=== PATIENT | male | born 1980 | race Caucasian/White ===

== ENCOUNTER 2018-06-11 15:54 | Emergency (ER) | payer MEDICAID ==
[2018-06-11] MEDS ORDERED: ONDANSETRON HCL IV 4 MG/2 ML VIAL IV ONE (16:14)
[2018-06-11] MEDS ORDERED: 0.9 % SODIUM CHLORIDE 1,000 ML BAG IV ONE (16:14)
--- NOTE | 2018-06-11 16:24 | Emergency Department Record ---
History of Present Illness - General Chief complaint: Vomiting Stated complaint: VOMITING Time Seen by Provider: 06/11/18 16:13 Source: Patient Mode of Arrival: Ambulatory - History of Present Illness Initial comments: vomiting for two days and no BM for two days and he has this happen a coupe times a year and his primary DrGarry is in [place]. He just moved here. epigastric pain and he has been using zantac and stopped it and started it up today. PMH GERD, allergic to diary products, EGD done in [facility] 2 years ago and EGD in [place] 4 years ago gastritis, Patient smokes marijuana daily one joint, no etoh and never cigs but uses vape Onset/Timin -: Days(s) Consistency: Intermittent, Getting worse Improves with: None Worsens with: None Context: Other - Related Data Home Medications Medication Instructions Recorded Confirmed Last Taken Ranitidine HCl [Zantac] 150 mg PO DAILY 06/11/18 06/11/18 05/21/18 Previous Rx's Medication Instructions Recorded Omeprazole 20 mg PO DAILY #30 06/11/18 Promethazine HCl [Phenergan] 25 mg PO Q6HR #10 tablet 06/11/18 Allergies Allergy/AdvReac Type Severity Reaction Status Date / Time lactase [From Dairy Aid] AdvReac VOMITING Verified 06/11/18 16:05 Travel Screening - Travel/Exposure Within Last 30 Days Have you traveled within the last 30 days?: No - Travel/Exposure Within Last Year Have you traveled outside the [place] in the last year?: No - Additonal Travel Details Have you been exposed to anyone with a communicable illness?: No - Travel Symptoms Symptom Screening: None Review of Systems Reviewed: No additional complaints except as noted below Constitutional: Reports: As per HPI. Denies: Chills, Fever, Malaise, Night sweats, Weakness, Weight change Eyes: Reports: As per HPI. Denies: Eye discharge, Eye pain, Photophobia, Vision change ENT: Reports: As per HPI. Denies: Congestion, Dental pain, Ear pain, Epistaxis , Hearing loss, Throat pain Respiratory: Reports: As per HPI. Denies: Cough, Dyspnea, Hemoptysis, Stridor, Wheezes Cardiovascular: Reports: As per HPI. Denies: Arrhythmia, Chest pain, Dyspnea on exertion, Edema, Murmurs, Orthopnea, Palpitations, Paroxysmal nocturnal dyspnea, Rheumatic Fever, Syncope Endocrine: Reports: As per HPI. Denies: Fatigue, Heat or cold intolerance, Polydipsia, Polyuria Gastrointestinal: Reports: As per HPI, Abdominal pain, Vomiting. Denies: Constipation, Diarrhea, Hematemesis, Hematochezia, Melena, Nausea Genitourinary: Reports: As per HPI. Denies: Dysuria, Frequency, Hematuria, Incontinence, Retention, Testicular pain, Testicular mass, Urgency Musculoskeletal: Reports: As per HPI. Denies: Arthralgia, Back pain, Gout, Joint swelling, Myalgia, Neck pain Skin: Reports: As per HPI. Denies: Bruising, Change in color, Change in hair/ nails, Lesions, Pruritus, Rash Neurological: Reports: As per HPI. Denies: Abnormal gait, Confusion, Headache, Numbness, Paresthesias, Seizure, Tingling, Tremors, Vertigo, Weakness Psychiatric: Reports: As per HPI. Denies: Anxiety, Auditory hallucinations, Depression, Homicidal thoughts, Suicidal thoughts, Visual hallucinations Hematological/Lymphatic: Reports: As per HPI. Denies: Anemia, Blood Clots, Easy bleeding, Easy bruising, Swollen glands Past Medical History - SOCIAL HISTORY Smoking Status: Never smoker Alcohol Use: None Drug Use: Occasional Drug Use Detail:: Marijuana - RESPIRATORY Hx Respiratory Disorders: No - CARDIOVASCULAR Hx Cardio Disorders: No - NEURO Hx Neuro Disorders: No - GI Hx GI Disorders: Yes Hx Reflux: Yes - Hx Genitourinary Disorders: No - ENDOCRINE Hx Endocrine Disorders: No - MUSCULOSKELETAL Hx Musculoskeletal Disorders: No - PSYCH Hx Psych Problems: No - HEMATOLOGY/ONCOLOGY Hx Hematology/Oncology Disorders: No Family Medical History Any Significant Family History?: No Physical Exam - General General Appearance: Alert, Oriented x3, Cooperative, Mild distress - Head Head exam: Normal inspection - Eye Eye exam: Normal appearance, PERRL Pupils: Normal accommodation - ENT ENT exam: Normal exam, Mucous membranes moist, Normal external ear exam, Normal orophraynx, TM's normal bilaterally Ear exam: Normal external inspection. negative: External canal tenderness Nasal Exam: Normal inspection. negative: Discharge, Sinus tenderness Mouth exam: Normal external inspection, Tongue normal Teeth exam: Normal inspection. negative: Dental caries Throat exam: Normal inspection. negative: Tonsillar erythema, Tonsillar exudate - Neck Neck exam: Normal inspection, Full ROM. negative: Tenderness - Respiratory Respiratory exam: Normal lung sounds bilaterally. negative: Respiratory distress - Cardiovascular Cardiovascular Exam: Regular rate, Normal rhythm, Normal heart sounds - GI/Abdominal GI/Abdominal exam: Soft, Normal bowel sounds. negative: Tenderness - Rectal Rectal exam: Deferred - exam: Deferred - Extremities Extremities exam: Normal inspection, Full ROM, Normal capillary refill. negative: Tenderness - Back Back exam: Reports: Normal inspection, Full ROM. Denies: Muscle spasm, Rash noted, Tenderness - Neurological Neurological exam: Alert, Normal gait, Oriented X3, Reflexes normal - Psychiatric Psychiatric exam: Normal affect, Normal mood - Skin Skin exam: Dry, Intact, Normal color, Warm Course Vital Signs 06/11/18 16:07 Temperature 98.7 F Pulse Rate 76 Respiratory 20 Rate Blood Pressure 154/115 Pulse Ox 97 - Reevaluation(s) Reevaluation #1: 06/11/18 17:20 feeling better Medical Decision Making - Lab Data Result diagrams: 06/11/18 16:15 06/11/18 16:15 Disposition Clinical Impression: Vomiting Qualifiers: Vomiting type: unspecified Vomiting Intractability: non-intractable Nausea presence: with nausea Qualified Code(s): R11.2 - Nausea with vomiting, unspecified GERD (gastroesophageal reflux disease) Qualifiers: Esophagitis presence: with esophagitis Qualified Code(s): K21.0 - Gastro- esophageal reflux disease with esophagitis Gastritis Qualifiers: Gastritis type: unspecified gastritis Chronicity: acute Gastritis bleeding: without bleeding Qualified Code(s): K29.00 - Acute gastritis without bleeding Disposition: Home, Self-Care Condition: (1) Good Instructions: Gastritis (ED), Gastroesophageal Reflux Disease (ED), Acute Nausea and Vomiting (ED) Additional Instructions: follow up with a family DrGarry in one week tylenol for pain Prescriptions: Promethazine HCl [Phenergan] 25 mg PO Q6HR #10 tablet Omeprazole 20 mg PO DAILY #30 cap.dr Forms: Patient Portal Access Time of Disposition: 17:22 Quality - Quality Measures Quality Measures: N/A - Blood Pressure Screening Does Patient Have Any of the Following: No Blood Pressure Classification: Hypertensive Reading Systolic Measurement: 154 Diastolic Measurement: 115 Screening for High Blood Pressure: < First Hypertensive BP, F/U Documented > [ G8950] First Hypertensive Follow-up Interventions: Referral to alternative/primary care provider.
[2018-06-11 16:28] LABS: HEMATOCRIT 47.3 % (42.0-52.0); HEMOGLOBIN 16.4 gm/dl (14.0-18.0); MEAN CELL VOLUME 89.4 fl (81-97); MEAN CORPUSCULAR HGB CONC 34.7 g/dl (32-36); MEAN PLATELET VOLUME 9.9 fl (7.4-10.4); PLATELET COUNT 388 K/uL (130-400); RED BLOOD COUNT 5.29 M/uL (4.40-5.70); RED CELL DISTRIBUTION WIDTH 12.5 % (11.5-14.5); WHITE BLOOD COUNT W/O DIFF 13.1 K/uL (4.2-12.2)
[2018-06-11 16:46] LABS: PLATELET ESTIMATE NORMAL (NORMAL)
[2018-06-11 16:51] LABS: BLOOD UREA NITROGEN 36 mg/dL (6-20); CREATININE 1.5 mg/dL (0.7-1.2); EST GLOMERULAR FILTRATION RATE 56 mL/min; TOTAL PROTEIN 9.1 g/dL (6.6-8.7)
[2018-06-11] MEDS ORDERED: PROMETHAZINE HCL 25 MG in 0.9 % SODIUM CHLORIDE 100ML 100 ML IVPB ONE (16:52)
[2018-06-11 16:53] LABS: GLUCOSE,RANDOM 148 mg/dL (74-109)
[2018-06-11 16:56] LABS: ALBUMIN 5.6 g/dL (4.0-5.0); ALKALINE PHOSPHATASE 55 U/L (40-129); ALT/SGPT 16 U/L (<41); AST/SGOT 19 U/L (10.0-50.0); LIPASE 17 U/L (13-60)
[2018-06-11 16:59] LABS: BILIRUBIN,DIRECT < 0.2 mg/dL (0-0.3)
[2018-06-11] MEDS ORDERED: 0.9 % SODIUM CHLORIDE 1000ML 1,000 ML IV SCH (17:00)
[2018-06-11] MEDS ORDERED: SUCRALFATE 1 G/10 ML UD PO ONE (17:08)
== END 2018-06-11 17:46 | disposition home or self-care (01) ==
LOC: ER 15:54
DX: K21.0 Gastro-esophageal reflux disease with esophagitis (principal); K29.00 Acute gastritis without bleeding; R11.2 Nausea with vomiting, unspecified
CPT/HCPCS: 80048; 80076; 83690; 85027; 96365; 96375; 99284; J2405; J2550; J7030

== ENCOUNTER 2018-08-22 11:29 | Emergency (ER) | payer MEDICAID ==
[2018-08-22] MEDS ORDERED: ONDANSETRON HCL IV 4 MG/2 ML VIAL IV ONE (11:35)
[2018-08-22] MEDS ORDERED: 0.9 % SODIUM CHLORIDE 1,000 ML BAG IV ONE ×2 (11:35→13:20)
--- NOTE | 2018-08-22 11:36 | Emergency Department Record ---
History of Present Illness - General Stated complaint: VOMITING Time Seen by Provider: 08/22/18 11:35 Source: Patient - History of Present Illness Initial comments: The patient states that he has vomited bile forty times today, and also lots for the prior 2 days as well. He also has a trace of diarrhea. he denies recent antibiotic use. He smokes marijuana two times daily or more for his anxiety. He denies fevers, chills, cough, sore throat, ear pain, chest pain, or other new problems. He takes phenergan suppositories for his nausea as he states zofran doesn't work. He just moved here from [place] where he had a UGI workup about 2 years ago which was normal except for reflux. He also has a milk allergy. MD complaint: Abdominal pain, Diarrhea, Nausea, Vomiting - Related Data Previous Rx's Medication Instructions Recorded Promethazine HCl [Phenergan] 25 mg RC Q6HR PRN #10 supp.rect 08/22/18 Allergies Allergy/AdvReac Type Severity Reaction Status Date / Time lactase [From Dairy Aid] AdvReac VOMITING Verified 06/11/18 16:05 Review of Systems Reviewed: No additional complaints except as noted below Constitutional: Reports: As per HPI. Denies: Chills, Fever, Malaise, Night sweats, Weakness, Weight change Eyes: Reports: As per HPI. Denies: Eye discharge, Eye pain, Photophobia, Vision change ENT: Reports: As per HPI. Denies: Congestion, Dental pain, Ear pain, Epistaxis , Hearing loss, Throat pain Respiratory: Reports: As per HPI. Denies: Cough, Dyspnea, Hemoptysis, Stridor, Wheezes Cardiovascular: Reports: As per HPI. Denies: Arrhythmia, Chest pain, Dyspnea on exertion, Edema, Murmurs, Orthopnea, Palpitations, Paroxysmal nocturnal dyspnea, Rheumatic Fever, Syncope Endocrine: Reports: As per HPI. Denies: Fatigue, Heat or cold intolerance, Polydipsia, Polyuria Gastrointestinal: Reports: As per HPI. Denies: Abdominal pain, Constipation, Diarrhea, Hematemesis, Hematochezia, Melena, Nausea, Vomiting Genitourinary: Reports: As per HPI. Denies: Dysuria, Frequency, Hematuria, Incontinence, Retention, Testicular pain, Testicular mass, Urgency Musculoskeletal: Reports: As per HPI. Denies: Arthralgia, Back pain, Gout, Joint swelling, Myalgia, Neck pain Skin: Reports: As per HPI. Denies: Bruising, Change in color, Change in hair/ nails, Lesions, Pruritus, Rash Neurological: Reports: As per HPI. Denies: Abnormal gait, Confusion, Headache, Numbness, Paresthesias, Seizure, Tingling, Tremors, Vertigo, Weakness Psychiatric: Reports: As per HPI. Denies: Anxiety, Auditory hallucinations, Depression, Homicidal thoughts, Suicidal thoughts, Visual hallucinations Hematological/Lymphatic: Reports: As per HPI. Denies: Anemia, Blood Clots, Easy bleeding, Easy bruising, Swollen glands Past Medical History - SOCIAL HISTORY Smoking Status: Never smoker Drug Use: Occasional Drug Use Detail:: Marijuana - RESPIRATORY Hx Respiratory Disorders: No - CARDIOVASCULAR Hx Cardio Disorders: No - NEURO Hx Neuro Disorders: No - GI Hx GI Disorders: Yes Hx Reflux: Yes - Hx Genitourinary Disorders: No - ENDOCRINE Hx Endocrine Disorders: No - MUSCULOSKELETAL Hx Musculoskeletal Disorders: No - PSYCH Hx Psych Problems: No - HEMATOLOGY/ONCOLOGY Hx Hematology/Oncology Disorders: No Family Medical History Any Significant Family History?: No Physical Exam - General General Appearance: Alert, Oriented x3, Cooperative, Mild distress - Head Head exam: Normal inspection - Eye Eye exam: Normal appearance, PERRL, EOMI. negative: Conjunctival injection, Nystagmus Pupils: Normal accommodation - ENT ENT exam: Normal exam, Mucous membranes dry, Normal external ear exam, Normal orophraynx, TM's normal bilaterally Ear exam: Normal external inspection. negative: External canal tenderness Nasal Exam: Normal inspection. negative: Discharge, Sinus tenderness Mouth exam: Normal external inspection, Tongue normal Teeth exam: Normal inspection. negative: Dental caries Throat exam: Normal inspection. negative: Tonsillar erythema, Tonsillar exudate - Neck Neck exam: Normal inspection, Full ROM. negative: Lymphadenopathy, Meningismus , Tenderness - Respiratory Respiratory exam: Normal lung sounds bilaterally. negative: Chest wall tenderness, Respiratory distress, Stridor, Wheezes - Cardiovascular Cardiovascular Exam: Regular rate, Normal rhythm, Normal heart sounds - GI/Abdominal GI/Abdominal exam: Soft, Normal bowel sounds, Tenderness (epigastric tenderness) - Rectal Rectal exam: Deferred - exam: Deferred - Extremities Extremities exam: Normal inspection, Full ROM, Normal capillary refill. negative: Calf tenderness, Pedal edema, Tenderness - Back Back exam: Reports: Normal inspection, Full ROM. Denies: CVA tenderness (R), CVA tenderness (L), Muscle spasm, Rash noted, Tenderness - Neurological Neurological exam: Alert, CN II-XII intact, Normal gait, Oriented X3, Reflexes normal. negative: Motor sensory deficit - Psychiatric Psychiatric exam: Normal affect, Normal mood - Skin Skin exam: Dry, Intact, Normal color, Warm. negative: Rash Course - Reevaluation(s) Reevaluation #1: 08/22/18 13:26 Patient states that he is no better after zofran and phenergan. He is dry heaving in the room, leaning forward, "it hurts worse in my stomach when I lay back." Reevaluation #2: 08/22/18 15:36 Patient appears much more comfortable and is ready for DC home with Phenergan suppositories and a GI consult. Medical Decision Making - Management Options MDM Management: No Additional Work-up Planned - Data Complexity MDM Data: Labs Ordered and/or Reviewed, X-Ray Ordered and/or Reviewed (CT abd pelvis: Neg. ) - Lab Data Result diagrams: 08/22/18 12:00 08/22/18 12:00 Disposition Disposition: Discharge Clinical Impression: Vomiting Qualifiers: Vomiting type: bilious vomiting Nausea presence: with nausea Qualified Code(s) : R11.14 - Bilious vomiting Nausea & vomiting Qualifiers: Vomiting Intractability: non-intractable Disposition: Home, Self-Care Condition: (1) Good Instructions: Acute Nausea and Vomiting (ED) Additional Instructions: Phenergan suppositories as needed as directed for nausea. [facility]. PCP follow up next week. Prescriptions: Promethazine HCl [Phenergan] 25 mg RC Q6HR PRN #10 supp.rect PRN Reason: Nausea/Vomiting Referrals: CHIKI PINZON [DOCTOR OF OSTEOPATH] - Quality - Quality Measures Quality Measures: N/A - Blood Pressure Screening Does Patient Have Any of the Following: No Blood Pressure Classification: Hypertensive Reading Systolic Measurement: 114 Diastolic Measurement: 100 Screening for High Blood Pressure: < Normal BP, F/U Not Required > [G8783]
[2018-08-22 12:04] LABS: BASO % 0.2 % (0-6); EOS % 0.4 % (0-6); GRAN % 79.2 % (47-80); HEMATOCRIT 46.7 % (42.0-52.0); HEMOGLOBIN 15.7 gm/dl (14.0-18.0); LYMPH % 13.8 % (16-45); MEAN CELL VOLUME 90.9 fl (81-97); MEAN CORPUSCULAR HEMOGLOBIN 30.5 pg (27-33); MEAN CORPUSCULAR HGB CONC 33.6 g/dl (32-36); MONO % 6.4 % (0-9); PLATELET COUNT 359 K/uL (130-400); RED BLOOD COUNT 5.14 M/uL (4.40-5.70); RED CELL DISTRIBUTION WIDTH 13.3 % (11.5-14.5); WHITE BLOOD COUNT W/O DIFF 11.9 K/uL (4.2-12.2)
[2018-08-22 12:09] LABS: BLOOD UREA NITROGEN 17 mg/dL (6-20); EST GLOMERULAR FILTRATION RATE > 60 mL/min
[2018-08-22 12:10] LABS: TOTAL PROTEIN 8.6 g/dL (6.6-8.7)
[2018-08-22 12:12] LABS: GLUCOSE,RANDOM 147 mg/dL (74-109)
[2018-08-22 12:15] LABS: ALB/GLOB RATIO 1.5 (1.1-1.8); ALBUMIN 5.1 g/dL (4.0-5.0); ALKALINE PHOSPHATASE 58 U/L (55-149); ALT/SGPT 27 U/L (<41); AST/SGOT 19 U/L (10.0-50.0); LIPASE 24 U/L (13-60)
[2018-08-22] MEDS ORDERED: PROMETHAZINE HCL 12.5 MG in 0.9 % SODIUM CHLORIDE 100ML 100 ML IVPB ONE (12:18)
[2018-08-22 12:43] LABS: URINE BILIRUBIN SMALL (NEGATIVE); URINE BLOOD NEGATIVE (NEGATIVE); URINE COLOR YELLOW; URINE GLUCOSE (UA) NEGATIVE (NEGATIVE); URINE LEUKOCYTE ESTERASE NEGATIVE (NEGATIVE); URINE NITRITE NEGATIVE (NEGATIVE)
[2018-08-22 12:45] LABS: URINE APPEARANCE CLOUDY; URINE KETONE 80 mg/dL (NEGATIVE)
[2018-08-22 12:47] LABS: AMPHETAMINE SCREEN URINE NOT DETECTED; BARBITURATE SCREEN URINE NOT DETECTED; BENZODIAZEPINE SCREEN URINE NOT DETECTED; COCAINE SCREEN URINE NOT DETECTED; METHADONE SCREEN URINE NOT DETECTED; METHAMPHETAMINE SCREEN NOT DETECTED; OPIATE SCREEN URINE NOT DETECTED; OXYCODONE SCREEN URINE NOT DETECTED; PHENCYCLIDINE SCREEN URINE NOT DETECTED; PROPOXYPHENE SCREEN URINE NOT DETECTED; THC SCREEN URINE DETECTED; TRICYCLIC ANTIDEPRESSANT SCRN NOT DETECTED
[2018-08-22 12:51] LABS: URINE BACTERIA 1+; URINE MUCUS HEAVY; URINE RBC NONE SEEN (NONE SEEN); URINE WBC 0 - 2 (0-2/hpf)
[2018-08-22] MEDS ORDERED: LORAZEPAM 2 MG/ML VIAL IV ONE (13:26)
--- NOTE | 2018-08-24 19:26 | CT SCAN REPORT ---
EXAM: CT SCAN ABDOMEN/PELVIS W CONTRAST HISTORY: NAUSEA AND VOMITING. TECHNIQUE: Sequential axial images were obtained from the diaphragms through the ischiorectal fossa after intravenous administration of 100 mL of Omnipaque- 300 contrast material. COMPARISON: None. FINDINGS: The visualized lung bases appear normal. The liver appears homogeneous. No gallstones or ductal dilatation. The pancreas and spleen appear normal. The adrenal glands and kidneys appear normal. No CT findings suggestive of obstructive uropathy. The urinary bladder appears normal. The small bowel appears normal. The appendix is visualized and appears normal. The colon appears normal. IMPRESSION: NO ACUTE ABDOMINAL OR PELVIC DISEASE PROCESS. JOB NUMBER: [id number] MTDD
== END 2018-08-22 15:55 | disposition home or self-care (01) ==
LOC: ER 11:29
DX: R11.14 Bilious vomiting (principal); R19.7 Diarrhea, unspecified; R10.13 Epigastric pain
CPT/HCPCS: 99284 ×2; 96365; 96375; 96361; 83690; 85025; 80053; 81001; 80305; 74177; Q9967; J2405; J2060; J2550; J7030

== ENCOUNTER 2018-08-24 13:34 | Emergency (ER) | payer MEDICAID ==
[2018-08-24] MEDS ORDERED: PROMETHAZINE HCL 25 MG in 0.9 % SODIUM CHLORIDE 100ML 100 ML IV ONE (15:00)
[2018-08-24] MEDS ORDERED: 0.9 % SODIUM CHLORIDE 1000ML 2,000 ML IV ONE (15:01)
[2018-08-24] MEDS ORDERED: 0.9 % SODIUM CHLORIDE 1,000 ML BAG IV ONE (15:06)
--- NOTE | 2018-08-24 15:20 | Emergency Department Record ---
History of Present Illness - General Chief complaint: Vomiting Stated complaint: VOMITING Time Seen by Provider: 08/24/18 15:01 Source: Patient, RN notes reviewed Mode of Arrival: Ambulatory - History of Present Illness Initial comments: patient vomited multipe times 20 times today and diarrhea times three today and he was seen here two days ago and given IV fluids and phenergan and he said he hAS HAD PROBLEMS WITH VOMITING FOR five years and he smokes 4 bowls of marijuana a day. patient had a CT of abd [address] of abd and pelvis negative for an acute process Onset/Timin -: Days(s) Description of Vomiting: Bilious, Watery Associated Abdominal Pain: Yes Location: Diffuse Improves with: None Worsens with: None Associated Symptoms: Denies other symptoms - Related Data Previous Rx's Medication Instructions Recorded Promethazine HCl [Phenergan] 25 mg RC Q6HR PRN #10 supp.rect 08/22/18 Hydroxyzine Pamoate [Vistaril] 25 mg PO Q6H #20 capsule 08/24/18 Promethazine HCl [Phenergan] 25 mg PO Q6HR #20 tablet 08/24/18 Allergies Allergy/AdvReac Type Severity Reaction Status Date / Time lactase [From Dairy Aid] AdvReac VOMITING Verified 08/24/18 14:02 Travel Screening - Travel/Exposure Within Last 30 Days Have you traveled within the last 30 days?: No Review of Systems Reviewed: No additional complaints except as noted below Constitutional: Reports: As per HPI. Denies: Chills, Fever, Malaise, Night sweats, Weakness, Weight change Eyes: Reports: As per HPI. Denies: Eye discharge, Eye pain, Photophobia, Vision change ENT: Reports: As per HPI. Denies: Congestion, Dental pain, Ear pain, Epistaxis , Hearing loss, Throat pain Respiratory: Reports: As per HPI. Denies: Cough, Dyspnea, Hemoptysis, Stridor, Wheezes Cardiovascular: Reports: As per HPI. Denies: Arrhythmia, Chest pain, Dyspnea on exertion, Edema, Murmurs, Orthopnea, Palpitations, Paroxysmal nocturnal dyspnea, Rheumatic Fever, Syncope Endocrine: Reports: As per HPI. Denies: Fatigue, Heat or cold intolerance, Polydipsia, Polyuria Gastrointestinal: Reports: As per HPI, Vomiting. Denies: Abdominal pain, Constipation, Diarrhea, Hematemesis, Hematochezia, Melena, Nausea Genitourinary: Reports: As per HPI. Denies: Dysuria, Frequency, Hematuria, Incontinence, Retention, Testicular pain, Testicular mass, Urgency Musculoskeletal: Reports: As per HPI. Denies: Arthralgia, Back pain, Gout, Joint swelling, Myalgia, Neck pain Skin: Reports: As per HPI. Denies: Bruising, Change in color, Change in hair/ nails, Lesions, Pruritus, Rash Neurological: Reports: As per HPI. Denies: Abnormal gait, Confusion, Headache, Numbness, Paresthesias, Seizure, Tingling, Tremors, Vertigo, Weakness Psychiatric: Reports: As per HPI. Denies: Anxiety, Auditory hallucinations, Depression, Homicidal thoughts, Suicidal thoughts, Visual hallucinations Hematological/Lymphatic: Reports: As per HPI. Denies: Anemia, Blood Clots, Easy bleeding, Easy bruising, Swollen glands Past Medical History - SOCIAL HISTORY Smoking Status: Former smoker Alcohol Use: None Drug Use: Occasional Drug Use Detail:: Marijuana - RESPIRATORY Hx Respiratory Disorders: No - CARDIOVASCULAR Hx Cardio Disorders: No - NEURO Hx Neuro Disorders: No - GI Hx GI Disorders: Yes Hx Abdominal Pain: Yes Hx Reflux: Yes Hx Nausea/Vomiting: Yes - Hx Genitourinary Disorders: No - ENDOCRINE Hx Endocrine Disorders: No - MUSCULOSKELETAL Hx Musculoskeletal Disorders: No - PSYCH Hx Psych Problems: Yes Hx Anxiety: Yes Hx Depression: Yes - HEMATOLOGY/ONCOLOGY Hx Hematology/Oncology Disorders: No Family Medical History Any Significant Family History?: No Physical Exam - General General Appearance: Alert, Oriented x3, Cooperative, Mild distress - Head Head exam: Normal inspection - Eye Eye exam: Normal appearance, PERRL Pupils: Normal accommodation - ENT ENT exam: Normal exam, Mucous membranes moist, Normal external ear exam, Normal orophraynx, TM's normal bilaterally Ear exam: Normal external inspection. negative: External canal tenderness Nasal Exam: Normal inspection. negative: Discharge, Sinus tenderness Mouth exam: Normal external inspection, Tongue normal Teeth exam: Normal inspection. negative: Dental caries Throat exam: Normal inspection. negative: Tonsillar erythema, Tonsillar exudate - Neck Neck exam: Normal inspection, Full ROM. negative: Tenderness - Respiratory Respiratory exam: Normal lung sounds bilaterally. negative: Respiratory distress - Cardiovascular Cardiovascular Exam: Regular rate, Normal rhythm, Normal heart sounds - GI/Abdominal GI/Abdominal exam: Soft, Normal bowel sounds. negative: Tenderness - Rectal Rectal exam: Deferred - exam: Deferred - Extremities Extremities exam: Normal inspection, Full ROM, Normal capillary refill. negative: Tenderness - Back Back exam: Reports: Normal inspection, Full ROM. Denies: Muscle spasm, Rash noted, Tenderness - Neurological Neurological exam: Alert, Normal gait, Oriented X3, Reflexes normal - Psychiatric Psychiatric exam: Normal affect, Normal mood - Skin Skin exam: Dry, Intact, Normal color, Warm Course Vital Signs 08/24/18 14:02 Temperature 98.1 F Pulse Rate 138 H Respiratory 20 Rate Blood Pressure 149/116 Pulse Ox 99 Medical Decision Making - Lab Data Result diagrams: 08/24/18 14:50 08/24/18 14:50 Disposition Clinical Impression: Marijuana abuse Vomiting Qualifiers: Vomiting type: unspecified Vomiting Intractability: non-intractable Nausea presence: with nausea Qualified Code(s): R11.2 - Nausea with vomiting, unspecified Disposition: Home, Self-Care Condition: (2) Stable Instructions: Acute Nausea and Vomiting (ED) Additional Instructions: stop marijuana clear liquids for 24 hours vistartil 25 mg every 6 hours phenergan 25 mg every 6 hours follow up with family Dr as scheduled Prescriptions: Promethazine HCl [Phenergan] 25 mg PO Q6HR #20 tablet Hydroxyzine Pamoate [Vistaril] 25 mg PO Q6H #20 capsule Forms: Patient Portal Access Time of Disposition: 17:55 Quality - Quality Measures Quality Measures: N/A - Blood Pressure Screening Does Patient Have Any of the Following: No Blood Pressure Classification: Hypertensive Reading Systolic Measurement: 149 Diastolic Measurement: 116 Screening for High Blood Pressure: < Pre-Hypertensive BP, F/U Documented > [ G8950] Pre-Hypertensive Follow-up Interventions: Referral to alternative/primary care provider.
[2018-08-24 15:21] LABS: BASO % 0.1 % (0-6); GRAN % 76.8 % (47-80); LYMPH % 11.9 % (16-45); MEAN CELL VOLUME 90.9 fl (81-97); MEAN CORPUSCULAR HEMOGLOBIN 30.3 pg (27-33); MEAN CORPUSCULAR HGB CONC 33.3 g/dl (32-36); MEAN PLATELET VOLUME 10.8 fl (7.4-10.4); MONO % 11.2 % (0-9); PLATELET COUNT 325 K/uL (130-400); RED BLOOD COUNT 5.28 M/uL (4.40-5.70); RED CELL DISTRIBUTION WIDTH 13.6 % (11.5-14.5); WHITE BLOOD COUNT W/O DIFF 10.9 K/uL (4.2-12.2)
[2018-08-24 15:30] LABS: BLOOD UREA NITROGEN 22 mg/dL (6-20); EST GLOMERULAR FILTRATION RATE > 60 mL/min
[2018-08-24 15:31] LABS: TOTAL PROTEIN 9.4 g/dL (6.6-8.7)
[2018-08-24 15:33] LABS: GLUCOSE,RANDOM 122 mg/dL (74-109)
[2018-08-24 15:35] LABS: ALBUMIN 5.5 g/dL (4.0-5.0); ALKALINE PHOSPHATASE 55 U/L (55-149); ALT/SGPT 24 U/L (<41); AST/SGOT 21 U/L (10.0-50.0); LIPASE 20 U/L (13-60)
[2018-08-24 15:38] LABS: BILIRUBIN,DIRECT < 0.2 mg/dL (0-0.3)
[2018-08-24] MEDS ORDERED: PROMETHAZINE HCL 25 MG/ML VIAL IV ONE (15:50)
[2018-08-24 16:10] LABS: URINE APPEARANCE CLEAR; URINE BILIRUBIN NEGATIVE (NEGATIVE); URINE BLOOD NEGATIVE (NEGATIVE); URINE COLOR YELLOW; URINE GLUCOSE (UA) NEGATIVE (NEGATIVE); URINE KETONE 40 mg/dL (NEGATIVE); URINE LEUKOCYTE ESTERASE NEGATIVE (NEGATIVE); URINE NITRITE NEGATIVE (NEGATIVE)
[2018-08-24] MEDS ORDERED: ONDANSETRON HCL IV 4 MG/2 ML VIAL IVP ONE (16:19)
[2018-08-24] MEDS ORDERED: LORAZEPAM 2 MG/ML VIAL IV ONE (16:19)
[2018-08-24 16:21] LABS: URINE AMORPHOUS SEDIMENT 2+; URINE EPITHELIAL CELLS 0 - 2 (FEW); URINE RBC 0 - 2 (NONE SEEN); URINE WBC 0 - 2 (0-2/hpf)
[2018-08-24 16:22] LABS: AMPHETAMINE SCREEN URINE NOT DETECTED; BARBITURATE SCREEN URINE NOT DETECTED; BENZODIAZEPINE SCREEN URINE NOT DETECTED; COCAINE SCREEN URINE NOT DETECTED; METHADONE SCREEN URINE NOT DETECTED; METHAMPHETAMINE SCREEN NOT DETECTED; OPIATE SCREEN URINE NOT DETECTED; OXYCODONE SCREEN URINE NOT DETECTED; PHENCYCLIDINE SCREEN URINE NOT DETECTED; PROPOXYPHENE SCREEN URINE NOT DETECTED; THC SCREEN URINE DETECTED; TRICYCLIC ANTIDEPRESSANT SCRN NOT DETECTED
[2018-08-24] MEDS ORDERED: POTASSIUM CHLORIDE 20 MEQ TABLET PO ONE (17:43)
[2018-08-24] MEDS ORDERED: HYDROXYZINE PAMOATE 25 MG CAPSULE PO ONE (17:49)
[2018-08-24] MEDS ORDERED: PROMETHAZINE HCL 25 MG TABLET PO ONE (17:49)
== END 2018-08-24 18:15 | disposition home or self-care (01) ==
LOC: ER 13:34
DX: R11.2 Nausea with vomiting, unspecified (principal); R19.7 Diarrhea, unspecified; F12.10 Cannabis abuse, uncomplicated; Z87.891 Personal history of nicotine dependence
CPT/HCPCS: 99284 ×2; 96365; 96375; 96361; 83690; 85025; 80076; 80048; 81001; 80305; G0480; J2405; J2060; 80320; J2550; J7030; Q0170

== ENCOUNTER 2018-12-17 12:53 | Emergency (ER) | payer MEDICAID ==
[2018-12-17] MEDS ORDERED: 0.9 % SODIUM CHLORIDE 1,000 ML BAG IV ONE (13:15)
--- NOTE | 2018-12-17 13:15 | Emergency Department Record ---
History of Present Illness - General Chief complaint: Vomiting Stated complaint: VOMITING Time Seen by Provider: 12/17/18 12:59 Source: Patient, RN notes reviewed Mode of Arrival: Wheelchair - History of Present Illness Initial comments: patient started vomiting on saturday and vomiting about times 20 and he tried zantac and peptobismal an one phenergan suppository. states the insurance doesn't cover the phenergan suppositories. Patient seen by Dr. Sharma in the office today and she was concerned he may have a kidney stone. His back pain is bilateral and more on the left side but mostly midline. patient smokes two joints per day of marijuana Onset/Timin -: Days(s) Severity: Moderate Associated Symptoms: Denies other symptoms - Related Data Previous Rx's Medication Instructions Recorded Promethazine HCl [Phenergan] 25 mg RC Q6HR #4 supp.rect 12/17/18 Allergies Allergy/AdvReac Type Severity Reaction Status Date / Time lactase [From Dairy Aid] AdvReac VOMITING Verified 12/17/18 12:58 Travel Screening - Travel/Exposure Within Last 30 Days Have you traveled within the last 30 days?: No - Travel/Exposure Within Last Year Have you traveled outside the [place] in the last year?: No - Additonal Travel Details Have you been exposed to anyone with a communicable illness?: No - Travel Symptoms Symptom Screening: None Review of Systems Reviewed: No additional complaints except as noted below Constitutional: Reports: As per HPI. Denies: Chills, Fever, Malaise, Night sweats, Weakness, Weight change Eyes: Reports: As per HPI. Denies: Eye discharge, Eye pain, Photophobia, Vision change ENT: Reports: As per HPI. Denies: Congestion, Dental pain, Ear pain, Epistaxis, Hearing loss, Throat pain Respiratory: Reports: As per HPI. Denies: Cough, Dyspnea, Hemoptysis, Stridor, Wheezes Cardiovascular: Reports: As per HPI. Denies: Arrhythmia, Chest pain, Dyspnea on exertion, Edema, Murmurs, Orthopnea, Palpitations, Paroxysmal nocturnal dyspnea, Rheumatic Fever, Syncope Endocrine: Reports: As per HPI. Denies: Fatigue, Heat or cold intolerance, Polydipsia, Polyuria Gastrointestinal: Reports: As per HPI. Denies: Abdominal pain, Constipation, Diarrhea, Hematemesis, Hematochezia, Melena, Nausea, Vomiting Genitourinary: Reports: As per HPI. Denies: Dysuria, Frequency, Hematuria, Incontinence, Retention, Testicular pain, Testicular mass, Urgency Musculoskeletal: Reports: As per HPI. Denies: Arthralgia, Back pain, Gout, Join t swelling, Myalgia, Neck pain Skin: Reports: As per HPI. Denies: Bruising, Change in color, Change in hair/nails, Lesions, Pruritus, Rash Neurological: Reports: As per HPI. Denies: Abnormal gait, Confusion, Headache, Numbness, Paresthesias, Seizure, Tingling, Tremors, Vertigo, Weakness Psychiatric: Reports: As per HPI. Denies: Anxiety, Auditory hallucinations, Depression, Homicidal thoughts, Suicidal thoughts, Visual hallucinations Hematological/Lymphatic: Reports: As per HPI. Denies: Anemia, Blood Clots, Easy bleeding, Easy bruising, Swollen glands Past Medical History - SOCIAL HISTORY Smoking Status: Former smoker Alcohol Use: None Drug Use: Heavy Drug Use Detail:: Marijuana - RESPIRATORY Hx Respiratory Disorders: No - CARDIOVASCULAR Hx Cardio Disorders: No - NEURO Hx Neuro Disorders: No - GI Hx GI Disorders: Yes Hx Abdominal Pain: Yes Hx Reflux: Yes Hx Nausea/Vomiting: Yes - Hx Genitourinary Disorders: No - ENDOCRINE Hx Endocrine Disorders: No - MUSCULOSKELETAL Hx Musculoskeletal Disorders: No - PSYCH Hx Psych Problems: Yes Hx Anxiety: Yes Hx Depression: Yes - HEMATOLOGY/ONCOLOGY Hx Hematology/Oncology Disorders: No Family Medical History Any Significant Family History?: No Physical Exam - General General Appearance: Alert, Oriented x3, Cooperative, No acute distress - Head Head exam: Normal inspection - Eye Eye exam: Normal appearance, PERRL Pupils: Normal accommodation - ENT ENT exam: Normal exam, Mucous membranes moist, Normal external ear exam, Normal orophraynx, TM's normal bilaterally Ear exam: Normal external inspection. negative: External canal tenderness Nasal Exam: Normal inspection. negative: Discharge, Sinus tenderness Mouth exam: Normal external inspection, Tongue normal Teeth exam: Normal inspection. negative: Dental caries Throat exam: Normal inspection. negative: Tonsillar erythema, Tonsillar exudate - Neck Neck exam: Normal inspection, Full ROM. negative: Tenderness - Respiratory Respiratory exam: Normal lung sounds bilaterally. negative: Respiratory distress - Cardiovascular Cardiovascular Exam: Regular rate, Normal rhythm, Normal heart sounds - GI/Abdominal GI/Abdominal exam: Soft, Normal bowel sounds. negative: Tenderness - Rectal Rectal exam: Deferred - exam: Deferred - Extremities Extremities exam: Normal inspection, Full ROM, Normal capillary refill. negative: Tenderness - Back Back exam: Reports: Normal inspection, Full ROM. Denies: Muscle spasm, Rash noted, Tenderness - Neurological Neurological exam: Alert, Normal gait, Oriented X3, Reflexes normal - Psychiatric Psychiatric exam: Normal affect, Normal mood - Skin Skin exam: Dry, Intact, Normal color, Warm Course Vital Signs 12/17/18 12:59 Temperature 98.4 F Pulse Rate 65 Respiratory 20 Rate Blood Pressure 130/86 Pulse Ox 98 - Reevaluation(s) Reevaluation #1: discussed case with Dr Sharma and will discharge 12/17/18 14:41 Medical Decision Making - Data Complexity MDM Data: Labs Ordered and/or Reviewed, X-Ray Ordered and/or Reviewed (CT abd pelis negative) - Lab Data Result diagrams: 12/17/18 13:00 12/17/18 13:00 Disposition Clinical Impression: Marijuana abuse Cyclic vomiting syndrome Qualifiers: Vomiting Intractability: non-intractable Nausea presence: with nausea Qualified Code(s): G43.A0 - Cyclical vomiting, not intractable Disposition: Home, Self-Care Condition: (1) Good Additional Instructions: follow up with Dr Sharma in one week NPO for 6 hours than clear liquids and gradually increase the diet stop marijuana use wrist pressure point bands and they are sold in drug store for motion sickness Prescriptions: Promethazine HCl [Phenergan] 25 mg RC Q6HR #4 supp.rect Forms: Patient Portal Access Time of Disposition: 14:49 Quality - Quality Measures Quality Measures: N/A - Blood Pressure Screening Does Patient Have Any of the Following: No Blood Pressure Classification: Pre-Hypertensive BP Reading Systolic Measurement: 130 Diastolic Measurement: 86 Screening for High Blood Pressure: < Pre-Hypertensive BP, F/U Documented > [G8950] Pre-Hypertensive Follow-up Interventions: Referral to alternative/primary care provider.
[2018-12-17] MEDS ORDERED: PROMETHAZINE HCL 25 MG in 0.9 % SODIUM CHLORIDE 100ML 100 ML IVPB ONE (13:22)
[2018-12-17 13:33] LABS: ABSOLUTE NEUTROPHIL COUNT 7.71; HEMATOCRIT 46.4 % (42.0-52.0); HEMOGLOBIN 15.7 gm/dl (14.0-18.0); MEAN CELL VOLUME 90.8 fl (81-97); MEAN CORPUSCULAR HEMOGLOBIN 30.7 pg (27-33); MEAN CORPUSCULAR HGB CONC 33.8 g/dl (32-36); MEAN PLATELET VOLUME 10.2 fl (7.4-10.4); PLATELET COUNT 294 K/uL (130-400); RED BLOOD COUNT 5.11 M/uL (4.40-5.70); RED CELL DISTRIBUTION WIDTH 12.5 % (11.5-14.5); WHITE BLOOD COUNT W/O DIFF 8.7 K/uL (4.2-12.2)
[2018-12-17 13:38] LABS: PLATELET ESTIMATE NORMAL (NORMAL)
[2018-12-17 13:41] LABS: BLOOD UREA NITROGEN 15 mg/dL (6-20)
[2018-12-17 13:42] LABS: CREATININE 1.1 mg/dL (0.7-1.2); EST GLOMERULAR FILTRATION RATE > 60 mL/min; LIPASE 21 U/L (13-60); TOTAL PROTEIN 8.2 g/dL (6.6-8.7)
[2018-12-17 13:44] LABS: GLUCOSE,RANDOM 134 mg/dL (74-109)
[2018-12-17 13:47] LABS: ALBUMIN 5.1 g/dL (4.0-5.0); ALKALINE PHOSPHATASE 48 U/L (40-129); ALT/SGPT 13 U/L (<41); AST/SGOT 16 U/L (10.0-50.0)
[2018-12-17 13:48] LABS: BILIRUBIN,DIRECT < 0.2 mg/dL (0-0.3)
[2018-12-17 14:07] LABS: URINE APPEARANCE CLEAR; URINE BILIRUBIN NEGATIVE (NEGATIVE); URINE BLOOD NEGATIVE (NEGATIVE); URINE COLOR YELLOW; URINE GLUCOSE (UA) NEGATIVE (NEGATIVE); URINE LEUKOCYTE ESTERASE NEGATIVE (NEGATIVE); URINE NITRITE NEGATIVE (NEGATIVE)
[2018-12-17 14:08] LABS: URINE KETONE 160 mg/dL (NEGATIVE)
[2018-12-17 14:14] LABS: URINE EPITHELIAL CELLS NONE SEEN (FEW); URINE MUCUS LIGHT; URINE RBC NONE SEEN (NONE SEEN); URINE WBC NONE SEEN (0-2/hpf)
[2018-12-17] MEDS ORDERED: LORAZEPAM 2 MG/ML VIAL IV ONE (14:17)
--- NOTE | 2018-12-19 13:52 | CT SCAN REPORT ---
EXAM: NONCONTRAST CT OF THE ABDOMEN AND PELVIS HISTORY: LOW BACK PAIN, NAUSEA AND VOMITING. TECHNIQUE: Noncontrast CT of the abdomen and pelvis was obtained. Comparison: CT of the abdomen and pelvis 08/22/18. FINDINGS: The lung bases are clear. Unremarkable noncontrast appearance of the liver, gallbladder, spleen, adrenal glands, and pancreas. No intrarenal calculi. No hydronephrosis. No focal colonic thickening or inflammatory change. A normal appendix is identified in the right lower quadrant. Likely ingested material in the stomach. The small bowel is nondilated. No free air or free fluid. Small prostatic calcifications are noted. Unremarkable appearance of the urinary bladder. No adenopathy is identified. The abdominal aorta is nondilated and mildly calcified. No acute osseous findings. IMPRESSION: NO ACUTE FINDINGS IN THE ABDOMEN OR PELVIS. JOB NUMBER: [id number] [facility]
== END 2018-12-17 15:01 | disposition home or self-care (01) ==
LOC: ER 12:53
DX: G43.A0 Cyclical vomiting, in migraine, not intractable (principal); T40.7X5A Adverse effect of cannabis (derivatives), initial encounter; M54.9 Dorsalgia, unspecified
CPT/HCPCS: 74176; 80048; 80076; 81001; 83690; 85027; 96365; 96375; 99284; J2550; J7030

== ENCOUNTER 2019-03-06 16:32 | Emergency (ER) | payer MEDICAID ==
[2019-03-06] MEDS ORDERED: KETOROLAC 60 MG/2 ML VIAL IM STA (18:20)
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
== END 2019-03-06 19:37 | disposition home or self-care (01) ==
LOC: ER 16:32
DX: S39.012A Strain of muscle, fascia and tendon of lower back, initial encounter (principal); X50.0XXA Overexertion from strenuous movement or load, initial encounter; Y93.B1 Activity, exercise machines primarily for muscle strengthening; Y92.009 Unspecified place in unspecified non-institutional (private) residence as the place of occurrence of the external cause; Z87.891 Personal history of nicotine dependence
CPT/HCPCS: 72100; 96372; 99283; 99284; J1885

== ENCOUNTER 2019-03-15 01:21 | Emergency (ER) | payer MEDICAID ==
[2019-03-15] MEDS ORDERED: 0.9 % SODIUM CHLORIDE 1,000 ML BAG IV ONE ×2 (01:41→02:20)
[2019-03-15] MEDS ORDERED: LORAZEPAM 2 MG/ML VIAL IV ONE (01:41)
[2019-03-15] MEDS ORDERED: ONDANSETRON HCL IV 4 MG/2 ML VIAL IV ONE (01:41)
--- NOTE | 2019-03-15 01:44 | Emergency Department Record ---
History of Present Illness - General Chief complaint: Vomiting Stated complaint: VOMITING Time Seen by Provider: 03/15/19 01:29 Source: Patient Mode of Arrival: Ambulatory Limitations: No limitations - History of Present Illness Initial comments: The patient is here due to persistent vomiting for the last 3 days. He denies any fever, blood in the vomit, diarrhea, AP or back pain. The patient has a hx of marijuana hyperemesis syndrome and has had many similar episodes to this. He did try his home medicines but they did not help him. The patient also has had [address] scans this year for this same issue that were both neg. MD complaint: Nausea, Vomiting Onset/Timin -: Days(s) Description of Vomiting: Bilious Associated Abdominal Pain: No Improves with: Rest Worsens with: None Context: Other Associated Symptoms: Denies other symptoms - Related Data Previous Rx's Medication Instructions Recorded Promethazine HCl [Phenergan] 25 mg PO TID #15 tablet 03/15/19 Allergies Allergy/AdvReac Type Severity Reaction Status Date / Time lactase [From Dairy Aid] AdvReac VOMITING Verified 03/15/19 01:27 Travel Screening - Travel/Exposure Within Last 30 Days Have you traveled within the last 30 days?: No - Travel/Exposure Within Last Year Have you traveled outside the [place] in the last year?: No - Additonal Travel Details Have you been exposed to anyone with a communicable illness?: No - Travel Symptoms Symptom Screening: None Review of Systems Constitutional: Denies: Chills, Fever Eyes: Denies: Eye discharge ENT: Denies: Congestion Respiratory: Denies: Cough, Dyspnea Past Medical History - SOCIAL HISTORY Smoking Status: Former smoker Alcohol Use: None Drug Use: Heavy Drug Use Detail:: Marijuana - RESPIRATORY Hx Respiratory Disorders: No - CARDIOVASCULAR Hx Cardio Disorders: No - NEURO Hx Neuro Disorders: No - GI Hx GI Disorders: Yes Hx Abdominal Pain: Yes Hx Reflux: Yes Hx Nausea/Vomiting: Yes - Hx Genitourinary Disorders: No - ENDOCRINE Hx Endocrine Disorders: No - MUSCULOSKELETAL Hx Musculoskeletal Disorders: No - PSYCH Hx Psych Problems: Yes Hx Anxiety: Yes Hx Depression: Yes - HEMATOLOGY/ONCOLOGY Hx Hematology/Oncology Disorders: No Family Medical History Any Significant Family History?: No Physical Exam - General General Appearance: Alert, Oriented x3, Cooperative, No acute distress - Head Head exam: Atraumatic, Normocephalic, Normal inspection - Eye Eye exam: Normal appearance, PERRL, EOMI - ENT Throat exam: Normal inspection. negative: Tonsillar erythema, Tonsillar exudate - Neck Neck exam: Normal inspection, Full ROM. negative: Tenderness - Respiratory Respiratory exam: Normal lung sounds bilaterally. negative: Respiratory distress - Cardiovascular Cardiovascular Exam: Regular rate, Normal rhythm, Normal heart sounds - GI/Abdominal GI/Abdominal exam: Soft, Normal bowel sounds. negative: Distended, Guarding, Rebound, Rigid, Tenderness - Extremities Extremities exam: Normal inspection, Full ROM, Normal capillary refill. negative: Tenderness - Back Back exam: Reports: Normal inspection - Neurological Neurological exam: Alert, Normal gait, Oriented X3. negative: Abnormal gait, Altered, Motor sensory deficit Course Vital Signs 03/15/19 01:26 Temperature 98.2 F Pulse Rate [ 72 Pulse Ox Probe] Respiratory 20 Rate Blood Pressure 159/112 [Left Arm] Pulse Ox 98 - Reevaluation(s) Reevaluation #1: The patient is doing better at this time. He denies any pain and states the nausea is much improved. 03/15/19 02:20 Reevaluation #2: The patient is doing a lot better at this time. His nausea is gone and he denies any AP. On exam his abdomen is very soft and nontender in all 4 quads. I did discuss the need to F/U with his PCP later this week and to return to the ER for any worsening symptoms. 03/15/19 02:57 Medical Decision Making - Lab Data Result diagrams: 03/15/19 01:45 03/15/19 01:45 Disposition Disposition: Discharge Clinical Impression: Cyclic vomiting syndrome Qualifiers: Vomiting Intractability: non-intractable Nausea presence: with nausea Qualified Code(s): G43.A0 - Cyclical vomiting, not intractable Disposition: Home, Self-Care Condition: (2) Stable Instructions: Acute Nausea and Vomiting (ED) Additional Instructions: Please continue your regular medicines and use the Phenergan for nausea. Please stop smoking marijuana. Please see your family doctor later this week for recheck and return to the ER for any worsening symptoms. Prescriptions: Promethazine HCl [Phenergan] 25 mg PO TID #15 tablet Forms: Patient Portal Access Time of Disposition: 03:00 Quality - Quality Measures Quality Measures: N/A - Blood Pressure Screening View Details: Yes Does Patient Have Any of the Following: No Blood Pressure Classification: Pre-Hypertensive BP Reading Systolic Measurement: 127 Diastolic Measurement: 79 Screening for High Blood Pressure: < Pre-Hypertensive BP, F/U Documented > [G8950] Pre-Hypertensive Follow-up Interventions: Referral to alternative/primary care provider.
[2019-03-15 01:51] LABS: ABSOLUTE NEUTROPHIL COUNT 7.75; BASO % 0.1 % (0-6); HEMATOCRIT 48.3 % (42.0-52.0); HEMOGLOBIN 16.3 gm/dl (14.0-18.0); LYMPH % 13.5 % (16-45); MEAN CELL VOLUME 90.6 fl (81-97); MEAN CORPUSCULAR HEMOGLOBIN 30.6 pg (27-33); MEAN CORPUSCULAR HGB CONC 33.7 g/dl (32-36); MEAN PLATELET VOLUME 9.8 fl (7.4-10.4); MONO % 9.4 % (0-9); PLATELET COUNT 340 K/uL (130-400); RED BLOOD COUNT 5.33 M/uL (4.40-5.70); RED CELL DISTRIBUTION WIDTH 12.9 % (11.5-14.5); WHITE BLOOD COUNT W/O DIFF 10.1 K/uL (4.2-12.2)
[2019-03-15 02:00] LABS: URINE APPEARANCE CLEAR; URINE BILIRUBIN MODERATE (NEGATIVE); URINE BLOOD MODERATE (NEGATIVE); URINE COLOR YELLOW; URINE GLUCOSE (UA) NEGATIVE (NEGATIVE); URINE KETONE TRACE (NEGATIVE); URINE LEUKOCYTE ESTERASE NEGATIVE (NEGATIVE); URINE NITRITE NEGATIVE (NEGATIVE); URINE UROBILINOGEN 0.2 E.U./dL (0.20 - 1.00)
[2019-03-15 02:03] LABS: URINE PROTEIN 300 mg/dL (NEGATIVE)
[2019-03-15 02:12] LABS: URINE EPITHELIAL CELLS 0 - 2 (FEW); URINE HYALINE CAST 16 - 25 /lpf; URINE MUCUS HEAVY; URINE RBC 0 - 2 (NONE SEEN); URINE WBC 0 - 2 (0-2/hpf)
[2019-03-15 02:27] LABS: CREATININE 1.4 mg/dL (0.7-1.2); EST GLOMERULAR FILTRATION RATE > 60 mL/min
[2019-03-15 02:28] LABS: LIPASE 20 U/L (13-60)
[2019-03-15 02:30] LABS: GLUCOSE,RANDOM 161 mg/dL (74-109)
[2019-03-15 02:32] LABS: ALT/SGPT 14 U/L (<41); AST/SGOT 19 U/L (10.0-50.0)
[2019-03-15 02:33] LABS: ALBUMIN 5.5 g/dL (4.0-5.0); ALKALINE PHOSPHATASE 57 U/L (40-129)
[2019-03-15 02:42] LABS: BILIRUBIN,DIRECT < 0.2 mg/dL (0-0.3)
[2019-03-15 03:27] LABS: BLOOD UREA NITROGEN 37 mg/dL (6-20)
== END 2019-03-15 03:07 | disposition home or self-care (01) ==
LOC: ER 01:21
DX: G43.A0 Cyclical vomiting, in migraine, not intractable (principal); T40.7X5A Adverse effect of cannabis (derivatives), initial encounter; Z87.891 Personal history of nicotine dependence
CPT/HCPCS: 80048; 80076; 81001; 83690; 85025; 96374; 96375; 99284; J2405; J7030

== ENCOUNTER 2019-03-16 01:16 | Observation (INO) | payer MEDICAID ==
[2019-03-16] MEDS ORDERED: 0.9 % SODIUM CHLORIDE 1,000 ML BAG IV ONE ×2 (01:35→01:53)
[2019-03-16] MEDS ORDERED: PROMETHAZINE HCL 12.5 MG in 0.9 % SODIUM CHLORIDE 100ML 100 ML IVPB ONE (01:36)
--- NOTE | 2019-03-16 01:44 | Emergency Department Record ---
History of Present Illness - General Chief complaint: Vomiting Stated complaint: VOMITTING Time Seen by Provider: 03/16/19 01:20 Source: Patient Mode of Arrival: Ambulatory Limitations: No limitations - History of Present Illness Initial comments: The patient is here due to a 3-4 day hx of frequent nausea with vomiting and mild abdominal discomfort. There has been no diarrhea, fever, or blood in the vomit. The patient has a long hx of cyclic vomiting syndrome most likely from heavy marijuana use and he continues to smoke. The patient has no hx of abd ominal surgeries. The patient was seen here in the ER 24 hours ago for the same thing and now is not better so he returned. MD complaint: Nausea, Vomiting Onset/Timin -: Days(s) - Related Data Previous Rx's Medication Instructions Recorded Promethazine HCl [Phenergan] 25 mg PO TID #15 tablet 03/15/19 Allergies Allergy/AdvReac Type Severity Reaction Status Date / Time lactase [From Dairy Aid] AdvReac VOMITING Verified 03/15/19 01:27 Review of Systems Constitutional: Denies: Chills, Fever Eyes: Denies: Eye discharge ENT: Denies: Congestion, Other Respiratory: Denies: Cough Cardiovascular: Denies: Arrhythmia Past Medical History - SOCIAL HISTORY Smoking Status: Former smoker Drug Use: Heavy Drug Use Detail:: Marijuana - RESPIRATORY Hx Respiratory Disorders: No - CARDIOVASCULAR Hx Cardio Disorders: No - NEURO Hx Neuro Disorders: No - GI Hx GI Disorders: Yes Hx Abdominal Pain: Yes Hx Reflux: Yes Hx Nausea/Vomiting: Yes - Hx Genitourinary Disorders: No - ENDOCRINE Hx Endocrine Disorders: No - MUSCULOSKELETAL Hx Musculoskeletal Disorders: No - PSYCH Hx Psych Problems: Yes Hx Anxiety: Yes Hx Depression: Yes - HEMATOLOGY/ONCOLOGY Hx Hematology/Oncology Disorders: No Physical Exam - General General Appearance: Alert, Oriented x3, Cooperative, No acute distress - Eye Eye exam: Normal appearance - ENT Throat exam: Normal inspection. negative: Tonsillar erythema, Tonsillar exudate - Neck Neck exam: Normal inspection, Full ROM. negative: Tenderness - Respiratory Respiratory exam: Normal lung sounds bilaterally. negative: Respiratory distress - Cardiovascular Cardiovascular Exam: Regular rate, Normal rhythm, Normal heart sounds - GI/Abdominal GI/Abdominal exam: Soft, Normal bowel sounds. negative: Bruit, Diminished bowel sounds, Guarding, Hyperactive bowel sounds, Rebound, Rigid, Tenderness - Extremities Extremities exam: Normal inspection, Full ROM, Normal capillary refill. negative: Tenderness - Back Back exam: Reports: Normal inspection - Neurological Neurological exam: Alert, Normal gait, Oriented X3. negative: Abnormal gait, Altered, Motor sensory deficit - Psychiatric Psychiatric exam: negative: Anxious Course Vital Signs 03/16/19 01:32 Temperature 98.1 F Pulse Rate [ 70 Right] Respiratory 20 Rate Blood Pressure 167/100 [Left Arm] Pulse Ox 97 - Reevaluation(s) Reevaluation #1: The patient is doing better at this time. His nausea is improved and his abdominal pain is improved also. He is tolerating small amounts of fluids. 03/16/19 02:43 Reevaluation #2: The patient denies any significant pain but is still quite nauseated. Due to that fact we will admit the patient OBV to the family practice group. 03/16/19 03:16 Medical Decision Making - Lab Data Result diagrams: 03/16/19 01:45 03/16/19 01:45 Disposition Disposition: Admit Clinical Impression: Cyclic vomiting syndrome Qualifiers: Vomiting Intractability: intractable Nausea presence: with nausea Qualified Code(s): G43.A1 - Cyclical vomiting, intractable Disposition: Still a Patient at [facility] Decision to Admit: Admit from ER Decision to Admit Date: 03/16/19 Decision to Admit Time: 03:17 Accepting Physician: Brenda Angel Discussed w/Accepting Physician: 03:17 Condition: (2) Stable Instructions: Acute Nausea and Vomiting (ED) Forms: Patient Portal Access Time of Disposition: 03:17 Quality - Quality Measures Quality Measures: N/A - Blood Pressure Screening View Details: Yes Does Patient Have Any of the Following: No Blood Pressure Classification: Pre-Hypertensive BP Reading Systolic Measurement: 147 Diastolic Measurement: 81 Screening for High Blood Pressure: < Pre-Hypertensive BP, F/U Documented > [G8950] Pre-Hypertensive Follow-up Interventions: Referral to alternative/primary care provider.
[2019-03-16 01:48] LABS: ABSOLUTE NEUTROPHIL COUNT 6.87; BASO % 0.1 % (0-6); GRAN % 69.3 % (47-80); HEMATOCRIT 47.1 % (42.0-52.0); HEMOGLOBIN 16.1 gm/dl (14.0-18.0); LYMPH % 19.8 % (16-45); MEAN CELL VOLUME 90.6 fl (81-97); MEAN CORPUSCULAR HGB CONC 34.2 g/dl (32-36); MONO % 10.8 % (0-9); PLATELET COUNT 319 K/uL (130-400); RED CELL DISTRIBUTION WIDTH 12.6 % (11.5-14.5); WHITE BLOOD COUNT W/O DIFF 9.9 K/uL (4.2-12.2)
[2019-03-16] MEDS ORDERED: LORAZEPAM 2 MG/ML VIAL IV ONE (01:55)
[2019-03-16 01:58] LABS: BLOOD UREA NITROGEN 26 mg/dL (6-20); CREATININE 1.3 mg/dL (0.7-1.2); EST GLOMERULAR FILTRATION RATE > 60 mL/min
[2019-03-16 01:59] LABS: LIPASE 22 U/L (13-60); TOTAL PROTEIN 8.4 g/dL (6.6-8.7)
[2019-03-16 02:01] LABS: GLUCOSE,RANDOM 135 mg/dL (74-109)
[2019-03-16 02:04] LABS: ALBUMIN 5.1 g/dL (4.0-5.0); ALKALINE PHOSPHATASE 52 U/L (40-129); ALT/SGPT 15 U/L (<41); AST/SGOT 23 U/L (10.0-50.0)
[2019-03-16 02:15] LABS: BILIRUBIN,DIRECT < 0.2 mg/dL (0-0.3)
[2019-03-16] MEDS ORDERED: ONDANSETRON HCL IV 4 MG/2 ML VIAL IVP ONE (03:03)
[2019-03-16 03:33] LABS: URINE APPEARANCE CLEAR; URINE BILIRUBIN NEGATIVE (NEGATIVE); URINE BLOOD NEGATIVE (NEGATIVE); URINE COLOR YELLOW; URINE GLUCOSE (UA) NEGATIVE (NEGATIVE); URINE KETONE 15 mg/dL (NEGATIVE); URINE LEUKOCYTE ESTERASE NEGATIVE (NEGATIVE); URINE NITRITE NEGATIVE (NEGATIVE); URINE UROBILINOGEN 0.2 E.U./dL (0.20 - 1.00)
[2019-03-16 03:38] LABS: AMPHETAMINE SCREEN URINE NOT DETECTED; BARBITURATE SCREEN URINE NOT DETECTED; BENZODIAZEPINE SCREEN URINE DETECTED; COCAINE SCREEN URINE NOT DETECTED; METHADONE SCREEN URINE NOT DETECTED; METHAMPHETAMINE SCREEN NOT DETECTED; OPIATE SCREEN URINE NOT DETECTED; OXYCODONE SCREEN URINE NOT DETECTED; PHENCYCLIDINE SCREEN URINE NOT DETECTED; PROPOXYPHENE SCREEN URINE NOT DETECTED; THC SCREEN URINE DETECTED; TRICYCLIC ANTIDEPRESSANT SCRN NOT DETECTED
[2019-03-16 03:42] LABS: URINE EPITHELIAL CELLS NONE SEEN (FEW); URINE RBC NONE SEEN (NONE SEEN); URINE WBC 0 - 2 (0-2/hpf)
[2019-03-16] MEDS ORDERED: POTASSIUM CHLORIDE/D5-0.9%NACL 20 MEQ/1,000 ML BAG IV ONE (03:54)
[2019-03-16] MEDS ORDERED: PROMETHAZINE HCL 12.5 MG in 0.9 % SODIUM CHLORIDE 100ML 100 ML IVPB PRN (03:54)
[2019-03-16] MEDS ORDERED: LORAZEPAM 2 MG/ML VIAL IV PRN (03:54)
[2019-03-16] MEDS: ONDANSETRON HCL IV 4 MG/2 ML VIAL IVP PRN ×2 (06:26→11:05)
--- NOTE | 2019-03-16 09:45 | History & Physical ---
History of Present Illness - Date of Service Date of Service for History & Physical: 03/16/19 - History of Present Illness Admitting Diagnosis: 1. Acute Cyclic Vomiting Disorder with dehydration. History of Present Illness: 38 y/o male presented to ED twice in 24 hours for cyclic persistent vomiting for the 3-4 days. Unable to keep down any PO intake. He is an every day recreational marijuana smoker up to 3 times daily. He states his coworker smokes marijuana almost consistently through the day and notices he has been smoking more himself due to this. He has a hx of repeated vomiting episodes from marijuana use and visits the ED for fluids during these episodes. He reports using marijuana since he was 13 years old and never bothered him until he was 30 years old. Past medical hx includes GERD, milk allergy, anxiety and depression. Upon arrival to ED VSS stable, CBC unremarkable, CMP consistent with dehydration. Urine toxicology + for cannabis and benzos. IV antiemetics and IV fluids given. Admitted for observation for persistent vomiting, dehydration, NPO, IV fluid/electrolyte replacement. 03/16/19- resting in bed comfortably. Reports he has not vomited since he drank oral contrast in the ED and nausea has improved some. States he is ready to stop using marijuana now. PCP: Dr Sharma Travel Screening - Travel/Exposure Within Last 30 Days Have you traveled within the last 30 days?: No - Travel/Exposure Within Last Year Have you traveled outside the [place] in the last year?: No - Additonal Travel Details Have you been exposed to anyone with a communicable illness?: No - Travel Symptoms Symptom Screening: Vomiting Review of Systems Constitutional: Denies: Chills, Fever Eyes: Denies: Eye discharge ENT: Denies: Congestion, Other Respiratory: Denies: Cough Cardiovascular: Denies: Arrhythmia Past Medical History - SOCIAL HISTORY Smoking Status: Former smoker Alcohol Use: None Drug Use: Heavy Drug Use Detail:: Marijuana - RESPIRATORY Hx Respiratory Disorders: No - CARDIOVASCULAR Hx Cardio Disorders: No - NEURO Hx Neuro Disorders: No - GI Hx GI Disorders: Yes Hx Abdominal Pain: Yes Hx Reflux: Yes Hx Nausea/Vomiting: Yes (hx of cyclic N/V) - Hx Genitourinary Disorders: No - ENDOCRINE Hx Endocrine Disorders: No - MUSCULOSKELETAL Hx Musculoskeletal Disorders: No - PSYCH Hx Psych Problems: Yes Hx Anxiety: Yes Hx Depression: Yes - HEMATOLOGY/ONCOLOGY Hx Hematology/Oncology Disorders: No Family Medical History Any Significant Family History?: No H&P Meds/Allergies - Allergies Allergies: Allergies Allergy/AdvReac Type Severity Reaction Status Date / Time lactase [From Dairy Aid] AdvReac VOMITING Verified 03/15/19 01:27 - Home Medications Previous Rx's Medication Instructions Recorded Promethazine HCl [Phenergan] 25 mg PO TID #15 tablet 03/15/19 - Active Medications Active Medications: Current Medications Potassium Chloride/Dextrose/Sod Cl () 20 meq in 1,000 mls @ 125 mls/hr IV NOW ONE Stop: 03/16/19 11:53 Last Admin: 03/16/19 04:45 Dose: 125 mls/hr Documented by: Promethazine HCl 12.5 mg/ (Sodium Chloride) 100.5 mls @ 200 mls/hr IVPB Q6H PRN PRN Reason: NAUSEA Last Infusion: 03/16/19 09:12 Dose: Infused Documented by: Lorazepam (Ativan) 1 mg IV Q8H PRN PRN Reason: ANXIETY Ondansetron HCl (Zofran) 4 mg IVP Q4H PRN PRN Reason: NAUSEA Last Admin: 03/16/19 06:26 Dose: 4 mg Documented by: Pantoprazole Sodium (Protonix Iv) 40 mg IV DAILY BETH Physical Exam - Vital Signs Vital Signs: Vital Signs - Last 24 Hrs Temp Pulse Pulse Resp BP BP Pulse Ox 03/16/19 08:00 98.1 F 52 L 16 146/73 99 03/16/19 06:30 97.6 F 65 18 133/98 100 03/16/19 03:55 98.5 F 66 18 145/91 99 03/16/19 02:48 90 19 147/81 99 03/16/19 01:32 98.1 F 70 20 167/100 97 - General General Appearance: Alert, Oriented x3, Cooperative, No acute distress Limitations: No limitations - Eye Eye exam: Normal appearance - ENT ENT exam: Mucous membranes moist Throat exam: Normal inspection. negative: Tonsillar erythema, Tonsillar exudate - Neck Neck exam: Normal inspection, Full ROM. negative: Tenderness - Respiratory Respiratory exam: Normal lung sounds bilaterally. negative: Respiratory distress - Cardiovascular Cardiovascular Exam: Regular rate, Normal rhythm, Normal heart sounds - GI/Abdominal GI/Abdominal exam: Soft, Normal bowel sounds, Tenderness (generalized). negative: Bruit, Diminished bowel sounds, Guarding, Hyperactive bowel sounds, Rebound, Rigid - Extremities Extremities exam: Normal inspection, Full ROM, Normal capillary refill. negative: Tenderness - Back Back exam: Reports: Normal inspection - Neurological Neurological exam: Alert, Normal gait, Oriented X3. negative: Abnormal gait, Altered, Motor sensory deficit - Psychiatric Psychiatric exam: negative: Anxious Results - Labs Result Diagrams: 03/16/19 01:45 03/16/19 01:45 Labs Last 24 Hours: Laboratory Results - last 24 hr 03/16/19 03/16/19 03/16/19 01:45 01:45 03:31 WBC 9.9 RBC 5.20 Hgb 16.1 Hct 47.1 MCV 90.6 MCH 31.0 MCHC 34.2 RDW 12.6 Plt Count 319 MPV 10.0 Gran % 69.3 Lymphocytes % 19.8 Monocytes % 10.8 H Eosinophils % 0.0 Basophils % 0.1 Absolute Neutrophils 6.87 Sodium 148 H Potassium 3.3 L Chloride 103 Carbon Dioxide 28.0 Anion Gap 17.0 H BUN 26 H Creatinine 1.3 H Estimated GFR > 60 Random Glucose 135 H Calcium 10.3 H Total Bilirubin 0.70 Direct Bilirubin < 0.2 AST 23 ALT 15 Alkaline Phosphatase 52 Total Protein 8.4 Albumin 5.1 H Lipase 22 Urine Color Yellow Urine Appearance Clear Urine pH 6.5 Ur Specific [place] 1.015 Urine Protein 30 mg/dl H Urine Glucose (UA) Negative Urine Ketones 15 mg/dl H Urine Blood Negative Urine Nitrite Negative Urine Bilirubin Negative Urine Urobilinogen 0.2 Ur Leukocyte Esterase Negative Urine RBC None seen Urine WBC 0 - 2 Ur Epithelial Cells None seen Urine Opiates Screen Ur Oxycodone Screen Urine Methadone Screen Ur Propoxyphene Screen Ur Barbituates Screen Ur Tricyclics Screen Ur Phencyclidine Scrn Ur Amphetamine Screen U Methamphetamines Scrn U Benzodiazepines Scrn Urine Cocaine Screen Urine Cannabis Screen 03/16/19 03:31 WBC RBC Hgb Hct MCV MCH MCHC RDW Plt Count MPV Gran % Lymphocytes % Monocytes % Eosinophils % Basophils % Absolute Neutrophils Sodium Potassium Chloride Carbon Dioxide Anion Gap BUN Creatinine Estimated GFR Random Glucose Calcium Total Bilirubin Direct Bilirubin AST ALT Alkaline Phosphatase Total Protein Albumin Lipase Urine Color Urine Appearance Urine pH Ur Specific [place] Urine Protein Urine Glucose (UA) Urine Ketones Urine Blood Urine Nitrite Urine Bilirubin Urine Urobilinogen Ur Leukocyte Esterase Urine RBC Urine WBC Ur Epithelial Cells Urine Opiates Screen Not detected Ur Oxycodone Screen Not detected Urine Methadone Screen Not detected Ur Propoxyphene Screen Not detected Ur Barbituates Screen Not detected Ur Tricyclics Screen Not detected Ur Phencyclidine Scrn Not detected Ur Amphetamine Screen Not detected U Methamphetamines Scrn Not detected U Benzodiazepines Scrn Detected Urine Cocaine Screen Not detected Urine Cannabis Screen Detected VTE H&P Assessment - Risk for VTE Risk for VTE: Yes Risk Level: Moderate Risk Assessment Date: 03/16/19 Risk Assessment Time: 09:46 VTE Orders Placed or Will Be Placed: Yes Plan - Detailed Diagnosis and Plan (1) Cyclic vomiting syndrome Current Visit: Yes Status: Acute Qualifiers: Vomiting Intractability: intractable Nausea presence: with nausea Qualified Code(s): G43.A1 - Cyclical vomiting, intractable Base Code: G43.A0 - CYCLICAL VOMITING, NOT INTRACTABLE Comment: 03/16/19 - Marijuana toxicity, has had 2 CT abdomen scans this year for same symptoms and have been negative - Advised stop using Marijuana immediately - Symptoms have improved some over night, hold on GI consult unless no improvement in symptoms after marijuana cessation - Hot showers as needed - IVF, antiemetics, PPI, Ativan - Will trial clear liquids (2) Marijuana abuse Current Visit: Yes Status: Acute Base Code: F12.10 - CANNABIS ABUSE, UNCOMPLICATED Comment: 03/16/19 (3) Full code status Current Visit: Yes Status: Acute Base Code: Z78.9 - OTHER SPECIFIED HEALTH STATUS Comment: 03/16/19 (4) DVT prophylaxis Current Visit: Yes Status: Acute Base Code: Z29.9 - ENCOUNTER FOR PROPHYLACTIC MEASURES, UNSPECIFIED Comment: 03/16/19 - Nursing to encourage frequent ambulation
[2019-03-16] MEDS ORDERED: PANTOPRAZOLE SODIUM IV 40 MG VIAL IV SCH (10:00)
--- NOTE | 2019-03-17 17:27 | Discharge Summary ---
Providers Discharge Summary Date: 03/16/19 Date of admission: 03/16/19 03:38 Attending physician: BRANDON UNDERWOOD Physical Exam - General General Appearance: Alert, Oriented x3, Cooperative, No acute distress Limitations: No limitations - Eye Eye exam: Normal appearance - ENT ENT exam: Mucous membranes moist Throat exam: Normal inspection. negative: Tonsillar erythema, Tonsillar exudate - Neck Neck exam: Normal inspection, Full ROM. negative: Tenderness - Respiratory Respiratory exam: Normal lung sounds bilaterally. negative: Respiratory distress - Cardiovascular Cardiovascular Exam: Regular rate, Normal rhythm, Normal heart sounds - GI/Abdominal GI/Abdominal exam: Soft, Normal bowel sounds, Tenderness (generalized). negative: Bruit, Diminished bowel sounds, Guarding, Hyperactive bowel sounds, Rebound, Rigid - Extremities Extremities exam: Normal inspection, Full ROM, Normal capillary refill. negative: Tenderness - Back Back exam: Reports: Normal inspection - Neurological Neurological exam: Alert, Normal gait, Oriented X3. negative: Abnormal gait, Altered, Motor sensory deficit - Psychiatric Psychiatric exam: negative: Anxious Hospitalization - Hospitalization Admission Diagnosis: 1. Acute Cyclic Vomiting Disorder with dehydration. - Problem List/Discharge Diagnosis (1) Cyclic vomiting syndrome Status: Acute Discharge Diagnosis: Vomiting Intractability: intractable Nausea presence: with nausea Qualified Code(s): G43.A1 - Cyclical vomiting, intractable Base Code: G43.A0 - CYCLICAL VOMITING, NOT INTRACTABLE Comment: 03/16/19 - Marijuana toxicity, has had 2 CT abdomen scans this year for same symptoms and have been negative - Advised stop using Marijuana immediately - Symptoms have improved some over night, hold on GI consult unless no improvement in symptoms after marijuana cessation - Hot showers as needed - IVF, antiemetics, PPI, Ativan - Will trial clear liquids (2) Marijuana abuse Status: Acute Base Code: F12.10 - CANNABIS ABUSE, UNCOMPLICATED Comment: 03/16/19 (3) Full code status Status: Acute Base Code: Z78.9 - OTHER SPECIFIED HEALTH STATUS Comment: 03/16/19 (4) DVT prophylaxis Status: Acute Base Code: Z29.9 - ENCOUNTER FOR PROPHYLACTIC MEASURES, UNSPECIFIED Comment: 03/16/19 - Nursing to encourage frequent ambulation - Hospitalization Course Disposition: Home Health Service Hospital Course: 38 y/o male presented to ED twice in 24 hours for cyclic persistent vomiting for the 3-4 days. Unable to keep down any PO intake. He is an every day recreational marijuana smoker up to 3 times daily. He states his coworker smokes marijuana almost consistently through the day and notices he has been smoking more himself due to this. He has a hx of repeated vomiting episodes from marijuana use and visits the ED for fluids during these episodes. He reports using marijuana since he was 13 years old and never bothered him until he was 30 years old. Past medical hx includes GERD, milk allergy, anxiety and depression. Upon arrival to ED VSS stable, CBC unremarkable, CMP consistent with dehydration. Urine toxicology + for cannabis and benzos. IV antiemetics and IV fluids given. Admitted for observation for persistent vomiting, dehydration, NPO, IV fluid/electrolyte replacement. 03/16/19 0900- resting in bed comfortably. Reports he has not vomited since he drank oral contrast in the ED and nausea has improved some. States he is ready to stop using marijuana now. 03/16/19 1300- hospitalization uncomplicated. NO further vomiting since admission, tolerated clear liquid diet. VSS. Labs unremarkable. Advised he discontinue marijuana products immediately. Follow up with PCP 1 week PCP: Dr Sharma Abnormal Labs: Abnormal Lab Results 03/16/19 03/16/19 03/16/19 Range/Units 01:45 01:45 03:31 Monocytes % 10.8 H (0-9) % Sodium 148 H (136-145) mmol/L Potassium 3.3 L (3.4-4.5) mmol/L Anion Gap 17.0 H (7-16) BUN 26 H (6-20) mg/dL Creatinine 1.3 H (0.7-1.2) mg/dL Random Glucose 135 H (74-109) mg/dL Calcium 10.3 H (8.6-10.0) mg/dL Albumin 5.1 H (4.0-5.0) g/dL Urine Protein 30 mg/dl H (NEGATIVE) Urine Ketones 15 mg/dl H (NEGATIVE) Condition at Discharge: (2) Stable Discharge Medications - Discharge Medications Home Medications: Ambulatory Orders Promethazine HCl [Phenergan] 25 mg PO TID #15 tablet 03/15/19 [Last Taken 1 Day Ago ~03/15/19 1600] Discharge Plan - Discharge Instructions Diet at Discharge: Advance to Usual Diet Instructions: Acute Nausea and Vomiting (ED) Additional Instructions: Appointment with Dr. Edith Jacobo, March 24 at 9:00am. Stop smoking marijuana Quality Measures - Quality Measures Quality Measures: Documentation of Current Medications in Medical Record, Screening for High Blood Pressure and F/U Documented - Current Medications Quality Measure: Measure #130: Documentation of Current Medications Documentation of Current Medications: <Current Medications Documented/Reviewed> [G8427] - Blood Pressure Screening Quality Measure: Screening for High Blood Pressure and Follow-Up Documented Does Patient Have Any of the Following: No Blood Pressure Classification: Hypertensive Reading Systolic Measurement: 167 Diastolic Measurement: 96 Screening for High Blood Pressure: < Normal BP, F/U Not Required > [G8783] - Elder Abuse Suspicion Index EASI Reference Information: Benitez FORREST, Nikki C, Armand D, Ramírez Flannery.Development and validation of a tool to assist physicians identification of elder abuse: The Elder Abuse Suspicion Index (EASI ). Journal of Elder Abuse and Neglect, 2008; 20 (3): 276-300.
== END 2019-03-16 13:38 | disposition home health service (06) ==
LOC: ER 01:16 → MEDSURG 03:38
PROVIDERS: ADMIT Internal Medicine; ATTEND Internal Medicine
DX: G43.A1 Cyclical vomiting, in migraine, intractable (principal); F12.10 Cannabis abuse, uncomplicated; E86.0 Dehydration; K21.9 Gastro-esophageal reflux disease without esophagitis; Z87.891 Personal history of nicotine dependence; F41.8 Other specified anxiety disorders
CPT/HCPCS: 80048; 80076; 80305; 81001; 83690; 85025; 96361; 96365; 96375; 99236; 99285; C9113; J2405; J2550; J3480; J7030